=== PATIENT | female | born 1990 | race Caucasian/White ===

== ENCOUNTER → 2022-10-26 | Outpatient (CLI) | payer OTHER | LOC: M PLALAB 09:38 | PROVIDERS: ATTEND Nurse Practitioner Family | DX: E22.1 Hyperprolactinemia (principal) ==

== ENCOUNTER → 2022-11-29 | Outpatient (CLI) | payer OTHER | LOC: M WHC 10:54 → EDUNIT# 11:30 | PROVIDERS: ATTEND Internal Medicine Endocrinology, Diabetes & Metabolism | DX: Z53.9 Procedure and treatment not carried out, unspecified reason (principal) ==